=== PATIENT | male | born 1930 | race Caucasian/White ===

== ENCOUNTER → 2017-09-05 | Outpatient (CLI) | payer MEDICARE, BC ==
[~2017-09-05] MED LIST: ALLO100T70 PO; ASP81 PO; ASPI-816; ASPI-816 PO; ATOR-1 PO; CHOL10005 PO; CLOP75TA PO; FLUT16SP19 NS; FURO-45 PO; HYDR10TA3 PO; HYDR453.8 TP; INDO50CA92 PO; LEVO50 PO; LISI5TAB25 PO; MET50 PO; METO100T20 PO; METO50TA19 PO; MVM PO; OXYGENHOME INH; PNEU0.5D3 IM; POT10 PO; PROP40TA45 PO; PROP60TA15 PO; RANI75TA5 PO; SIMV-54 PO; SPIR25TA78 PO; TAM4 PO; TAMS0.4C70 PO; TRAM-420 PO; TRIA15OI20 TP
[2017-09-05 08:23] LABS: PLATELET COUNT, AUTOMATED 129 K/uL (150-450)
--- NOTE | 2017-09-05 08:58 | RADIOLOGY IMAGING REPORT ---
FACILITY: [facility] - [place] PATIENT NAME: Maximo Vee : 1930 MR: [id number] V: [id number] EXAM DATE: ORDERING PHYSICIAN: KYLAH REID TECHNOLOGIST: Location: [facility] - [place] Patient: Maximo eVe : 1930 Visit/Account:[id number] Date of Sevice: 09/05/2017 Exam type: KNEE 3 VIEW RIGHT History: Right knee pain and swelling Comparison: May 31, 2017. Findings: Is moderate narrowing of the medial compartment with subchondral erosions and marginal osteophyte cait t appear some are to the prior study. There is mild narrowing of the lateral compartment similar to the prior examination. Spurring is noted along the superior and inferior aspects of the patella also relatively unchanged.. No evidence of acute fracture or dislocation is a small well-corticated bony density projecting over the anterior aspect of the knee joint best seen on the lateral view. The so ft tissue spine/joint effusion appears less prominent when compared the prior examination IMPRESSION: 1. Moderate degenerative changes of the medial compartment and patellofemoral compartments and mild generative changes the lateral compartment of the right knee Small well-corticated bony density projects just anterior to the knee joint best seen on the lateral view which may represent a loose body Soft tissue swelling/joint effusion appears less prominent when compared to the prior examination Report Dictated By: Keysha Sears MD at 09/05/2017 8:47 AM Report E-Signed By: Keysha Sears MD at 09/05/2017 8:52 AM WSN:[email or web address]
== END ==
LOC: RAD 07:52
PROVIDERS: ATTEND Internal Medicine
DX: M17.11 Unilateral primary osteoarthritis, right knee (principal); M25.461 Effusion, right knee
CPT/HCPCS: 36415; 81001; 82040; 82247; 82310; 82374; 82435; 82465; 82565; 82607; 82947; 83718; 83880; 84075; 84132; 84155; 84295; 84443; 84450; 84460; 84478; 84520; 84550; 85025

== ENCOUNTER → 2017-09-27 | Outpatient (CLI) | payer MEDICARE, BC | LOC: LAB 09:57 | PROVIDERS: ATTEND Nurse Practitioner | DX: D23.9 Other benign neoplasm of skin, unspecified (principal) | CPT/HCPCS: 88305 ==

== ENCOUNTER → 2017-11-05 | Outpatient (CLI) | payer MEDICARE, BC ==
[~2017-11-05] MED LIST changes: -ASPI-816; -ASPI-816 PO; +ASPI-870; +ASPI-870 PO
== END ==
LOC: LAB 08:49
PROVIDERS: ATTEND Internal Medicine
DX: I12.9 Hypertensive chronic kidney disease with stage 1 through stage 4 chronic kidney disease, or unspecified chronic kidney disease (principal); N18.9 Chronic kidney disease, unspecified; I50.9 Heart failure, unspecified
CPT/HCPCS: 36415; 82310; 82374; 82435; 82565; 82947; 84132; 84295; 84520

== ENCOUNTER → 2018-01-31 | Outpatient (CLI) | payer MEDICARE, BC ==
[~2018-01-31] MED LIST changes: +INDO-23 PO; -INDO50CA92 PO; -SPIR25TA78 PO; +SPIR25TA80 PO
--- NOTE | 2018-01-31 13:28 | RADIOLOGY IMAGING REPORT ---
FAC[place] [facility] [place]IENT NAME: Maximo Vee : 1930 MR: [id number] V: [id number] EXAM DATE: ORDERING PHYSICIAN: MK FIERRO TECHNOLOGIST: Location: [facility] Patient: Maximo Vee : 1930 Visit/Account:[id number] Date of Sevice: 01/31/2018 IAC'S W/O CONTRAST COMPARISON: None Additional pertinent history: Sensorineural hearing loss Technique: Multiple axial images were obtained through the internal auditory canals bilaterally. Derrick nal and sagittal reformatted images were obtained off the axial source data. No IV contrast was admin istered. One of the following dose optimization techniques was utilized in the performance of this e xam: Automated exposure control; adjustment of the mA and/or kV according to the patient's size; or u se of an iterative reconstruction technique. Specific details can be referenced in the facility's r adiology CT exam operational policy. FINDINGS: Right internal auditory canal: Mastoid air cells/middle ear cavity: Negative Ossicular chain: Negative Scutum/tympanic membrane: Negative Semicircular canals and cochlea: Negative Bony internal auditory canal and external auditory canal: Negative Petrous apex: Negative Glenoid fossa and temporomandibular joint: Negative Course of the internal carotid artery and jugular bulb: Negative Left internal auditory canal: Mastoid air cells/middle ear cavity: Negative Ossicular chain: Negative Scutum/tympanic membrane: Negative Semicircular canals and cochlea: Negative Bony internal auditory canal and external auditory canal: Negative Petrous apex: Negative Glenoid fossa and temporomandibular joint: Negative Course of the internal carotid artery and jugular bulb: Negative Surrounding soft tissues: Negative Visualized paranasal sinuses: Complete opacification of the left maxillary sinus as well as severe m ucosal thickening involving the left sphenoid sinus as well as complete opacification of the posterio r left ethmoid air cells. IMPRESSION: 1. Underlying paranasal sinus disease. 2. Normal imaging of the internal auditory canals.. Report Dictated By: Cy Gupta MD at 01/31/2018 1:20 PM Report E-Signed By: Cy Gupta MD at 01/31/2018 1:24 PM WSN:[id number]
== END ==
LOC: CT 08:59
PROVIDERS: ATTEND Otolaryngology
DX: J32.4 Chronic pansinusitis (principal)
CPT/HCPCS: 70480

== ENCOUNTER → 2018-02-01 | Outpatient (CLI) | payer MEDICARE, BC | LOC: LAB 08:40 | PROVIDERS: ATTEND Internal Medicine | DX: I12.9 Hypertensive chronic kidney disease with stage 1 through stage 4 chronic kidney disease, or unspecified chronic kidney disease (principal); N18.9 Chronic kidney disease, unspecified | CPT/HCPCS: 36415; 82040; 82247; 82310; 82374; 82435; 82565; 82947; 84075; 84132; 84155; 84295; 84450; 84460; 84520 ==

== ENCOUNTER → 2018-04-29 | Outpatient (CLI) | payer MEDICARE, BC ==
[2018-04-29 11:42] LABS: PLATELET COUNT, AUTOMATED 130 K/uL (150-450)
--- NOTE | 2018-04-29 12:17 | EKG ---
FACILITY: [facility] [place] PATIENT NAME: SETH STOCKTON : [id number] MR: [id number] V: [id number] EXAM DATE: ORDERING PHYSICIAN: KYLAH REID TECHNOLOGIST: MUSHTAQ Test Reason : SX CLEARENCE Blood Pressure : / mmHG Vent. Rate : 056 BPM Atrial Rate : 056 BPM P-R Int : 168 ms QRS Dur : 130 ms QT Int : 446 ms P-R-T Axes : 077 094 057 degrees QTc Int : 430 ms Sinus bradycardia Right bundle branch block Abnormal ECG When compared with ECG of 23-OCT-2016 15:12, No significant change was found Confirmed by KYLAH REID ([id number]) on 04/29/2018 4:44:45 PM Referred By: MARIAH Confirmed By:KYLAH REID
== END ==
LOC: RESP 10:26
PROVIDERS: ATTEND Internal Medicine
DX: Z01.818 Encounter for other preprocedural examination (principal); I50.9 Heart failure, unspecified; E78.00 Pure hypercholesterolemia, unspecified; Z98.890 Other specified postprocedural states; R94.31 Abnormal electrocardiogram [ECG] [EKG]
CPT/HCPCS: 36415; 81001; 82040; 82247; 82310; 82374; 82435; 82465; 82565; 82607; 82947; 83718; 83880; 84075; 84132; 84155; 84295; 84443; 84450; 84460; 84478; 84520; 85025

== ENCOUNTER 2018-05-01 00:57 | Outpatient (RCR) | payer MEDICARE, BC ==
[~2018-05-01 00:57] MED LIST changes: -RANI75TA5 PO; +RANI75TA51 PO
--- NOTE | 2018-05-01 12:21 | RADIOLOGY IMAGING REPORT ---
FACILITY: [facility] - [place] PATIENT NAME: Maximo Vee : 1930 MR: [id number] V: [id number] EXAM DATE: [id number] ORDERING PHYSICIAN: KYLAH REID TECHNOLOGIST: Location: [facility] Patient: Maximo Vee : 1930 Visit/Account:[id number] Date of Sevice: 05/01/2018 Exam type: CHEST PA AND LAT History: pulmonary HTN Comparison: November 07, 2016. Findings: There is a vague area of increased density projects over the right midlung field and an additional [place] area of increased density projects over the medial aspect of the left midlung field. These could represent artifacts from superimposed shadows. Short-term interval follow-up chest or chest CT may be helpful depending upon the clinical presentation. There is no evidence of pleural effusions or pu lmonary edema. Cardiac silhouette is normal in size. There are moderate spondylotic changes of the thoracic spine. IMPRESSION: 1. There is increased density projects over the midlung [place]. This could represent superimposed s hadows although short-term interval follow-up chest or chest CT may be helpful depending upon the cli nical presentation Report Dictated By: Keysha Sears MD at 05/01/2018 11:08 AM Report E-Signed By: Keysha Sears MD at 05/01/2018 12:17 PM WSN:[id number]
[2018-05-02] MEDS ORDERED: REGADENOSON 0.4 MG/5 ML SYR ONE (10:10)
--- NOTE | 2018-05-07 15:55 | RADIOLOGY IMAGING REPORT ---
FACILITY: [facility] [place] PATIENT NAME: Maximo Vee : 1930 MR: [id number] V: [id number] EXAM DATE: [id number] ORDERING PHYSICIAN: KYLAH REID TECHNOLOGIST: Location: [facility] Patient: Maximo Vee : 1930 Visit/Account:[id number] Date of Sevice: 05/01/2018 REGADENOSON (LEXISCAN) MYOCARDIAL PERFUSION IMAGING. EXAMINATION: Single isotope SPECT imaging with regadenoson infusion and gated SPECT imaging. DATE OF EXAMINATION: 2 day study completed 05/01/2018 and 05/02/2018. REQUESTING PHYSICIAN:FRANKLIN INDICATION: Preop evaluation PROCEDURE: After informed consent the patient received an intravenous injection of Tc-99m sestamibi followed at an appropriate time interval by rest imaging which occurred on 05/01/2018. On 05/02/2018, the patient then subsequently received an intravenous infusion of 0.4 mg of regadenoson per protoco l without complication. Resting heart rate was 52 bpm with a peak heart rate of 70 bpm. Blood press ure at rest was 126/72 and following infusion was 133/55 . Baseline EKG demonstrates sinus rhythm w ith a right bundle branch block. There were no EKG changes of ischemia following infusion. Non-spec ific symptoms were reported. The patient then received an intravenous injection of Tc-99m sestamibi followed by stress imaging. DOSE of Tc-99m sestamibi (mCi): REST: 14.8 STRESS: 20.1 RAW DATA: Examination of the summed raw data revealed a fair quality study. MYOCARDIAL PERFUSION: The tomographic images demonstrate normal myocardial perfusion study without e vidence of myocardial ischemia or infarct. GATED IMAGES: The gated images demonstrate normal myocardial LV systolic function with LVEF greater than 70% with normal wall motion. IMPRESSION: 1. Nondiagnostic ECG portion of Lexiscan stress test. Right bundle-branch block noted throughout the study 2. Normal myocardial perfusion study without evidence of myocardial ischemia or infarct 3. Normal LV systolic performance and wall motion with LVEF greater than 70% Report Dictated By: Gino Felix at 05/07/2018 3:47 PM Report E-Signed By: Gino Felix at 05/07/2018 3:51 PM WSN:[id number]
--- NOTE | 2018-05-08 16:36 | RT STRESS TEST REPORT ---
FACILITY: [facility] PATIENT NAME: SETH STOCKTON : [id number] MR: [id number] V: [id number] EXAM DATE: ORDERING PHYSICIAN: KYLAH REID TECHNOLOGIST: Breana Acquisition Time: 2018-05-02 10:32:19 Total Exercise Time: 00:01:00 Test Indications: Pre-Op Evaluation Medications: SEE NUCLEAR MED SHEET Protocol: LEXISCAN Max HR: 070 BPM 52% of Pred: 134 BPM Max BP: 133/055 mmHG Max Work Load: 1.0 METS Baseline EKG RBBB. Impression No EKG changes suggestive of ischemia Nuclear medicine to follow Confirmed by KYLAH REID ([id number]) on 05/08/2018 4:36:19 PM Referred By: Overread By: KYLAH REID
== END 2018-05-02 18:00 | disposition home or self-care (01) ==
LOC: NUC 00:57 → EDSTATUS 05-02 10:00 → NUC 05-02 18:00
PROVIDERS: ATTEND Internal Medicine
DX: I27.20 Pulmonary hypertension, unspecified (principal); I50.32 Chronic diastolic (congestive) heart failure
CPT/HCPCS: 71046; 78452; 93017; A9500; J2785

== ENCOUNTER → 2018-09-16 | Outpatient (CLI) | payer MEDICARE ==
[~2018-09-16] MED LIST changes: +ASPI-1471 PO; +ESCI5TAB3 PO
--- NOTE | 2018-09-16 09:19 | RADIOLOGY IMAGING REPORT ---
FACILITY: [facility] - [place] PATIENT NAME: Maximo Vee : 1930 MR: [id number] V: [id number] EXAM DATE: ORDERING PHYSICIAN: KYLAH REID TECHNOLOGIST: Location: Patient: Maximo Vee : 1930 Visit/Account:[id number] Date of Sevice: 09/16/2018 EXAMINATION: CT temporal bones NO CONTRAST INDICATION: Hearing loss COMPARISON STUDY:None TECHNIQUE: Multiple thin cut axial images were obtained through the temporal bones bilaterally. Coron al 2-dimensional reconstructions were made from the original data set. Sagittal reconstructions were also obtained. One of the following dose optimization techniques was utilized in the performance of this exam: Autom ated exposure control; adjustment of the mA and/or kV according to the patient's size; or use of an i terative reconstruction technique. Specific details can be referenced in the facility's radiology C T exam operational policy. Right side: On the right, the external auditory canal is unremarkable. The mastoid air cells are unopacified. The tympanic membrane is not thickened. The scutum is sharp. The middle ear is unopacified. The ossicles are unremarkable. The horizontal facial nerve canal is no t dehiscent. The cochlear and vestibular structures are unremarkable. The internal auditory canal is unremarkable. The vestibular and cochlear aqueducts are unremarkable. Left side: The left external auditory canal is unremarkable. The left mastoid air cells are unopacified. The tympanic membrane is not thickened. The scutum is sharp. The middle ear is unopacified. The ossicles are unremarkable. The horizontal facial nerve canal is no t dehiscent. The vestibular and cochlear structures are unremarkable. The internal auditory canal is unremarkable. The vestibular and cochlear aqueducts are unremarkable. 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 IMPRESSION: No significant abnormality identified within the petrous bones bilaterally. 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 Report Dictated By: Butch Boo at 09/16/2018 9:11 AM Report E-Signed By: Butch Boo at 09/16/2018 9:14 AM WSN:[email or web address]
== END ==
LOC: CT 09-13 14:10
PROVIDERS: ATTEND Internal Medicine
DX: R41.3 Other amnesia (principal)
CPT/HCPCS: 70450

== ENCOUNTER → 2018-11-06 | Outpatient (CLI) | payer MEDICARE ==
[~2018-11-06] MED LIST changes: +TAMS0.4C25 PO
[2018-11-06 08:50] LABS: PLATELET COUNT, AUTOMATED 130 K/uL (150-450)
== END ==
LOC: LAB 08:24
PROVIDERS: ATTEND Internal Medicine
DX: F41.9 Anxiety disorder, unspecified (principal); F03.90 Unspecified dementia, unspecified severity, without behavioral disturbance, psychotic disturbance, mood disturbance, and anxiety; I25.10 Atherosclerotic heart disease of native coronary artery without angina pectoris; I50.9 Heart failure, unspecified; I27.20 Pulmonary hypertension, unspecified; E78.00 Pure hypercholesterolemia, unspecified; Z98.890 Other specified postprocedural states
CPT/HCPCS: 36415; 81001; 83880; 84443; 85025; G0103; 82040; 82247; 82310; 82374; 82435; 82465; 82565; 82947; 83718; 84075; 84132; 84153; 84155; 84295; 84450; 84460; 84478; 84520